=== PATIENT | male | born 1970 | race Two or more races ===

== ENCOUNTER 2018-02-26 18:19 | Emergency (ER) | payer MEDICAID, OTHER ==
[~2018-02-26] VITALS: Ht 185.4 cm; Wt 103.5 kg
[~2018-02-26 18:19] MED LIST: CEPH250T PO; EYE OINTMENT; HYDR-569 PO; HYDR1TAB PO; IBUP-1051 PO; ROBDML PO
[2018-02-26] MEDS ORDERED: famotidine 20mg tablet PO ONE (19:05)
[2018-02-26] MEDS ORDERED: loratadine 10mg tablet PO STA (19:05)
[2018-02-26] MEDS ORDERED: TRIA15CR61 TOP (19:13)
[2018-02-26 19:35] VITALS: BP 135/95
== END 2018-02-26 19:38 | disposition home or self-care (01) ==
LOC: ER 18:20
DX: S40.862A Insect bite (nonvenomous) of left upper arm, initial encounter (principal); Z79.899 Other long term (current) drug therapy; W57.XXXA Bitten or stung by nonvenomous insect and other nonvenomous arthropods, initial encounter; Y93.89 Activity, other specified; Y92.89 Other specified places as the place of occurrence of the external cause; Y99.8 Other external cause status
CPT/HCPCS: 99283

== ENCOUNTER 2018-04-11 01:13 | Emergency (ER) | payer MEDICAID, OTHER ==
[~2018-04-11] VITALS: Ht 182.9 cm; Wt 93.7 kg
[~2018-04-11 01:13] MED LIST changes: -CEPH250T PO
[2018-04-11 02:08] LABS: PARTIAL THROMBOPLASTIN TIME 28 SECONDS (22-32); PROTHROMBIN TIME 10.4 SECONDS (9.0-12.0)
[2018-04-11 02:12] LABS: ALANINE AMINOTRANSFERASE 28 U/L (12-78); ALBUMIN/GLOBULIN RATIO 1.1 (1.1-1.5); ALKALINE PHOSPHATASE 65 IU/L (46-116); ANION GAP 6 (8-16); ASPARTATE AMINO TRANSFERASE 18 U/L (10-37); BILIRUBIN,TOTAL 0.4 MG/DL (0.1-1.0); BLOOD UREA NITROGEN 15 MG/DL (7-18); BUN/CREATININE RATIO 11.4 (5.4-32.0); CALCIUM 8.9 MG/DL (8.5-10.1); CHLORIDE 106 MMOL/L (99-107); CREATININE 1.32 MG/DL (0.60-1.10); GLUCOSE 116 MG/DL (70-104); SODIUM 140 MMOL/L (135-145); TOTAL CARBON DIOXIDE 28.5 MMOL/L (24-32); TOTAL PROTEIN 7.7 G/DL (6.4-8.2); eGFR 58 ML/MIN
[2018-04-11 02:16] LABS: BASOPHILS # (AUTO) 0.1 X10'3 (0-0.2); BASOPHILS % (AUTO) 0.8 % (0-1); EOSINOPHILS # (AUTO) 0.4 X10'3 (0-0.9); EOSINOPHILS % (AUTO) 4.7 % (0-6); HEMATOCRIT 46.5 % (42.0-52.0); HEMOGLOBIN 15.8 g/dl (14.0-17.9); LYMPHOCYTES # (AUTO) 3.3 X10'3 (1.1-4.8); LYMPHOCYTES % (AUTO) 35.5 % (21-51); MEAN CORPUSCULAR HEMOGLOBIN 30.6 PG (27.0-31.0); MEAN CORPUSCULAR HGB CONC 33.9 % (33.0-36.5); MEAN CORPUSCULAR VOLUME 90.3 FL (78-98); MEAN PLATELET VOLUME 7.4 FL (7.4-10.4); MONOCYTES # (AUTO) 0.8 X10'3 (0-0.9); MONOCYTES % (AUTO) 8.3 % (2-12); NEUTROPHILS # (AUTO) 4.7 X10'3 (1.8-7.7); NEUTROPHILS % (AUTO) 50.7 % (42-75); PLATELET COUNT 262 X10'3 (140-440); RED BLOOD COUNT 5.15 X10'6 (4.70-6.10); RED CELL DISTRIBUTION WIDTH 13.8 % (11.5-14.5); WHITE BLOOD COUNT 9.2 X10'3 (4.5-11.0)
[2018-04-11 02:34] VITALS: BP 134/80
== END 2018-04-11 02:35 | disposition home or self-care (01) ==
LOC: ER 01:13
DX: M79.602 Pain in left arm (principal); M79.601 Pain in right arm; R07.89 Other chest pain; F17.200 Nicotine dependence, unspecified, uncomplicated; F15.10 Other stimulant abuse, uncomplicated; Z56.0 Unemployment, unspecified; Z98.890 Other specified postprocedural states; Z79.899 Other long term (current) drug therapy
CPT/HCPCS: 36415; 71045; 80053; 84484; 85025; 85610; 85730; 93005; 99285

== ENCOUNTER 2018-04-11 22:56 | Emergency (ER) | payer MEDICAID, OTHER ==
[~2018-04-11] VITALS: Ht 188 cm; Wt 106.8 kg
[2018-04-11 23:01] VITALS: BP 145/89
[2018-04-12 00:34] LABS: URINE AMPHETAMINE SCREEN POSITIVE (Neg); URINE BARBITUATE SCREEN NEGATIVE (Neg); URINE BENZODIAZEPINES SCREEN NEGATIVE (Neg); URINE CANNABINOID SCREEN NEGATIVE (Neg); URINE COCAINE SCREEN NEGATIVE (Neg); URINE METHADONE SCREEN NEGATIVE (Neg); URINE OPIATE SCREEN NEGATIVE (Neg); URINE PHENCYCLIDINE SCREEN NEGATIVE (Neg)
== END 2018-04-12 02:17 | disposition home or self-care (01) ==
LOC: ER 22:57
DX: I87.2 Venous insufficiency (chronic) (peripheral) (principal); M79.605 Pain in left leg; F17.200 Nicotine dependence, unspecified, uncomplicated; F15.10 Other stimulant abuse, uncomplicated; Z56.0 Unemployment, unspecified; Z79.899 Other long term (current) drug therapy
CPT/HCPCS: 73560; 73600; 80305; 93971; 99285

== ENCOUNTER 2019-09-15 15:55 | Emergency (ER) | payer MEDICAID, OTHER ==
[~2019-09-15] VITALS: Ht 175.3 cm; Wt 100.5 kg
[~2019-09-15 15:55] MED LIST changes: +HYDR-4383 PO; -HYDR-569 PO
[2019-09-15] MEDS ORDERED: PENI500T2 PO (17:10)
[2019-09-15 17:22] VITALS: BP 129/88
== END 2019-09-15 17:23 | disposition home or self-care (01) ==
LOC: ER 15:56
DX: K08.89 Other specified disorders of teeth and supporting structures (principal); K03.81 Cracked tooth; F15.90 Other stimulant use, unspecified, uncomplicated; Z56.0 Unemployment, unspecified; Z98.890 Other specified postprocedural states; Z79.899 Other long term (current) drug therapy
CPT/HCPCS: 99283

== ENCOUNTER 2021-01-04 01:27 | Emergency (ER) | payer MEDICAID ==
[~2021-01-04] VITALS: Ht 182.9 cm; Wt 106.8 kg
[2021-01-04 01:33] VITALS: BP 164/111
--- NOTE | 2021-01-04 01:37 | NUR ---
AAKASH GURROLA MADE AWARE OF PT SYMPTOMS, NO NEW ORDERS AT THIS TIME
== END 2021-01-04 02:13 | disposition home or self-care (01) ==
LOC: ER 01:28
DX: R20.2 Paresthesia of skin (principal); F15.90 Other stimulant use, unspecified, uncomplicated; Z56.0 Unemployment, unspecified; Z79.899 Other long term (current) drug therapy; Z98.890 Other specified postprocedural states
CPT/HCPCS: 99281

== ENCOUNTER 2021-03-19 11:00 | Emergency (ER) | payer MEDICAID ==
[~2021-03-19] VITALS: Ht 182.9 cm; Wt 105.0 kg
[2021-03-19 11:19] VITALS: BP 155/100
[2021-03-19] MEDS ORDERED: AMOX-422 PO (14:20)
[2021-03-19] MEDS ORDERED: SULF1TAB45 PO (14:20)
== END 2021-03-19 14:32 | disposition home or self-care (01) ==
LOC: ER 11:02
DX: S61.532A Puncture wound without foreign body of left wrist, initial encounter (principal); F15.90 Other stimulant use, unspecified, uncomplicated; M25.532 Pain in left wrist; Z56.0 Unemployment, unspecified; Z98.890 Other specified postprocedural states; Z79.2 Long term (current) use of antibiotics; Z79.899 Other long term (current) drug therapy; W64.XXXA Exposure to other animate mechanical forces, initial encounter; Y93.89 Activity, other specified; Y92.89 Other specified places as the place of occurrence of the external cause; Y99.8 Other external cause status
CPT/HCPCS: 99283

== ENCOUNTER 2021-04-03 02:09 | Emergency (ER) | payer MEDICAID ==
[~2021-04-03] VITALS: Ht 185.4 cm; Wt 107.3 kg
[2021-04-03] MEDS ORDERED: tetanus & diphtheria toxoid (Td) vaccine 0.5ml IMVAC ONE (02:35)
[2021-04-03] MEDS ORDERED: cephalexin 250mg capsule PO ONE (02:35)
[2021-04-03] MEDS ORDERED: CEPH500C2 PO (02:39)
[2021-04-03] MEDS ORDERED: ibuprofen 200mg tablet PO ONE (02:40)
[2021-04-03] MEDS ORDERED: TETanus/Pertussis (Acell)/Diphther VAC/PF (Tdap-Adult) 0.5ml syringe IMVAC ONE (02:40)
[2021-04-03 02:54] VITALS: BP 144/99
== END 2021-04-03 02:56 | disposition home or self-care (01) ==
LOC: ER 02:10
DX: M79.602 Pain in left arm (principal); M79.89 Other specified soft tissue disorders; F15.90 Other stimulant use, unspecified, uncomplicated; Z56.0 Unemployment, unspecified; Z79.899 Other long term (current) drug therapy
CPT/HCPCS: 90471; 90715; 99283

== ENCOUNTER 2022-03-28 04:40 | Emergency (ER) | payer MEDICAID ==
[~2022-03-28] VITALS: Ht 182.9 cm; Wt 106.8 kg
[2022-03-28 04:57] VITALS: BP 156/99
== END 2022-03-28 15:18 | disposition left against medical advice (07) ==
LOC: ER 04:40
DX: T63.301A Toxic effect of unspecified spider venom, accidental (unintentional), initial encounter (principal); Z53.21 Procedure and treatment not carried out due to patient leaving prior to being seen by health care provider; Y92.89 Other specified places as the place of occurrence of the external cause